=== PATIENT | male | born 1975 | race Caucasian/White ===

== ENCOUNTER 2020-01-12 03:25 | Emergency (ER) | payer OTHER ==
[~2020-01-12] VITALS: Ht 167.6 cm; Wt 88.5 kg
[2020-01-12] MEDS ORDERED: CICL90CR10 TP (03:34)
--- NOTE | 2020-01-12 03:39 | NUR ---
Dr Morin into eval patient.
[2020-01-12] MEDS ORDERED: FAMOTIDINE 20 MG TABLET ONE (03:56)
[2020-01-12] MEDS ORDERED: predniSONE 50 MG TABLET ONE (03:56)
[2020-01-12] MEDS ORDERED: predniSONE 10 MG TABLET ONE (03:56)
[2020-01-12] MEDS ORDERED: diphenhydrAMINE 25 MG CAP PO ONE ×2 (03:56→04:00)
[2020-01-12] MEDS ORDERED: predniSONE 20 MG TABLET PO ONE (04:00)
[2020-01-12] MEDS ORDERED: FAMOTIDINE 20 MG TABLET PO ONE (04:00)
[2020-01-12 04:05] VITALS: BP 150/80
--- NOTE | 2020-01-12 04:05 | NUR ---
Patient discharged to home in stable condition with taking patient home. Written and verbal after care instructions given. Patient verbalizes understanding of instructions. Stressed follow up or return to ER for worsening s/s.
== END 2020-01-12 04:06 | disposition home or self-care (01) ==
LOC: ER 03:33
DX: T78.40XA Allergy, unspecified, initial encounter (principal); X58.XXXA Exposure to other specified factors, initial encounter
CPT/HCPCS: 99284; J7512 ×2; Q0163; A4663